=== PATIENT | female | born 2000 | race Two or more races ===

== ENCOUNTER 2021-10-05 18:43 | Emergency (ER) | payer MEDICAID, OTHER ==
[~2021-10-05] VITALS: Ht 160 cm; Wt 88.9 kg
[2021-10-05 20:15] LABS: Urine Bacteria FEW /hpf (None Seen); Urine Blood Negative /uL (Negative); Urine Mucus FEW (None Seen); Urine Specific Gravity 1.019 (1.001-1.035); Urine WBC 70 /hpf (0 - 5)
[2021-10-05 20:24] LABS: Basophils # (auto) 0.1 10 ^3/uL (0-0.2); Basophils % (auto) 0.3 % (0.0-2.0); Eosinophils # (auto) 0.2 10 ^3/uL (0-0.8); Hematocrit 35.7 % (36.0-46.0); Hemoglobin 12.1 g/dL (12.2-16.2); Lymphocytes # (auto) 1.3 10 ^3/uL (0.4-5.4); Mean Corpuscular Hemoglobin 28.7 pg (28.0-32.0); Mean Corpuscular Hgb Conc. 33.9 g/dL (32.0-36.0); Mean Corpuscular Volume 84.7 fL (80.0-100.0); Monocytes # (auto) 0.6 10 ^3/uL (0-1.3); Monocytes % (auto) 3.3 % (0.0-12.0); Neutrophils # (auto) 16.9 10 ^3/uL (1.6-8.6); Neutrophils % (auto) 88.4 % (37.0-80.0); Red Blood Cells 4.22 10^6/uL (4.0-5.20); Red Cell Distribution Width 14.4 % (11.8-14.3); White Blood Cell 19.2 10^3/uL (4.4-10.8)
[2021-10-05 21:05] LABS: Albumin 3.3 g/dL (3.4-5.0); BUN/Creatinine Ratio 11.7; Calcium 8.9 mg/dL (8.5-10.1); Potassium 3.6 mmol/L (3.5-5.1)
[2021-10-05 21:07] LABS: Bilirubin, Total 0.5 mg/dL (0.2-1.0); Total Protein 7.9 g/dL (6.4-8.2)
[2021-10-05] MEDS ORDERED: MORPHINE SULFATE 4 MG/ML SYR/VIAL IV ONE (21:45)
[2021-10-05] MEDS ORDERED: SODIUM CHLORIDE 0.9% 1,000 ML IV ONE (21:45)
[2021-10-05] MEDS ORDERED: IOHEXOL 300 MG/ML 100ML BOTTLE IJ ONE (22:17)
[2021-10-06] MEDS ORDERED: SODIUM CHLORIDE 0.9% 1,000 ML IV ONE (02:00)
[2021-10-06] MEDS ORDERED: MORPHINE SULFATE 4 MG/ML SYR/VIAL IV ONE ×2 (02:00)
[2021-10-06] MEDS ORDERED: IBUP800T26 PO (06:09)
[2021-10-06] MEDS ORDERED: CEPH500C PO (06:09)
[2021-10-06] MEDS ORDERED: ONDA-144 PO (06:09)
[2021-10-06] MEDS ORDERED: cefTRIAXone 1GM/50ML D5W 50 ML IV ONE (06:15)
[2021-10-06 07:37] VITALS: BP 129/83
== END 2021-10-06 08:11 | disposition home or self-care (01) ==
LOC: ER 18:43
DX: N12 Tubulo-interstitial nephritis, not specified as acute or chronic (principal)
CPT/HCPCS: 36415; 74177; 76830; 76856; 80053; 81001; 81025; 82150; 83690; 85025; 96361; 96365; 96375; 96376; 99285; J0696; J2270; Q9967

== ENCOUNTER 2021-12-07 10:34 | Emergency (ER) | payer MEDICAID ==
[~2021-12-07] VITALS: Ht 160 cm; Wt 88.5 kg
[~2021-12-07 10:34] MED LIST: CEPH500C PO; IBUP800T26 PO; ONDA-144 PO
[2021-12-07 11:28] LABS: Urine Bacteria FEW /hpf (None Seen); Urine Blood 3+ /uL (Negative); Urine Specific Gravity 1.026 (1.001-1.035); Urine WBC 83 /hpf (0 - 5)
[2021-12-07 11:43] LABS: Basophils # (auto) 0 10 ^3/uL (0-0.2); Basophils % (auto) 0.6 % (0.0-2.0); Eosinophils # (auto) 0.2 10 ^3/uL (0-0.8); Eosinophils % (auto) 2.9 % (0.0-7.0); Hematocrit 41.7 % (36.0-46.0); Hemoglobin 13.7 g/dL (12.2-16.2); Lymphocytes # (auto) 2.8 10 ^3/uL (0.4-5.4); Lymphocytes % (auto) 34.5 % (10.0-50.0); Mean Corpuscular Hemoglobin 27.8 pg (28.0-32.0); Mean Corpuscular Hgb Conc. 32.8 g/dL (32.0-36.0); Mean Corpuscular Volume 84.5 fL (80.0-100.0); Monocytes # (auto) 0.4 10 ^3/uL (0-1.3); Monocytes % (auto) 5.2 % (0.0-12.0); Neutrophils # (auto) 4.6 10 ^3/uL (1.6-8.6); Neutrophils % (auto) 56.8 % (37.0-80.0); Nucleated Red Blood Cells % 0.1 %; Red Blood Cells 4.93 10^6/uL (4.0-5.20); Red Cell Distribution Width 13.7 % (11.8-14.3); White Blood Cell 8.1 10^3/uL (4.4-10.8)
[2021-12-07] MEDS ORDERED: CIPROFLOXACIN HCL 500 MG TAB PO ONE (14:30)
[2021-12-07] MEDS ORDERED: CIPR-173 PO (16:05)
[2021-12-07 16:30] VITALS: BP 116/88
== END 2021-12-07 16:59 | disposition home or self-care (01) ==
LOC: ER 10:34
DX: N93.9 Abnormal uterine and vaginal bleeding, unspecified (principal); N39.0 Urinary tract infection, site not specified; Z79.1 Long term (current) use of non-steroidal anti-inflammatories (NSAID); Z79.899 Other long term (current) drug therapy
CPT/HCPCS: 36415; 81001; 84702; 85025

== ENCOUNTER 2023-01-16 18:31 | Emergency (ER) | payer MEDICAID, OTHER ==
[~2023-01-16] VITALS: Ht 162.6 cm; Wt 86.1 kg
[~2023-01-16 18:31] MED LIST changes: +CIPR-173 PO; +IBUP-1455 PO; -IBUP800T26 PO
[2023-01-16 19:37] VITALS: BP 146/80; PULSE 75; RESP 18; TEMP 98.4; O2SAT 98
[2023-01-16] MEDS ORDERED: CLIN300C70 PO (19:59)
[2023-01-16] MEDS ORDERED: HYDR-4902 PO (19:59)
[2023-01-16] MEDS ORDERED: CLINDAMYCIN HCL 150 MG CAP PO ONE (20:00)
[2023-01-16] MEDS ORDERED: HYDROcodone-ACET 5/325MG TAB PO ONE (20:00)
== END 2023-01-16 20:25 | disposition home or self-care (01) ==
LOC: ER 18:31
DX: L03.211 Cellulitis of face (principal); K04.7 Periapical abscess without sinus; Z79.899 Other long term (current) drug therapy; Z87.442 Personal history of urinary calculi

== ENCOUNTER 2023-01-19 18:18 | Emergency (ER) | payer OTHER ==
[~2023-01-19] VITALS: Ht 160 cm; Wt 88.4 kg
[~2023-01-19 18:18] MED LIST changes: +CLIN300C70 PO; +HYDR-4902 PO
[2023-01-19] MEDS ORDERED: IOHEXOL 300 MG/ML 100ML BOTTLE IJ ONE (20:12)
[2023-01-19] MEDS ORDERED: SODIUM CHLORIDE 0.9% 1,000 ML IV ONE (20:15)
[2023-01-19] MEDS ORDERED: AMPICILLIN & SULBACTAM SODIUM 3 GM in SODIUM CHL 0.9% 100 ML IV SCH (20:15)
[2023-01-19 20:30] LABS: Basophils # (auto) 0 10 ^3/uL (0-0.2); Basophils % (auto) 0.5 % (0.0-2.0); Eosinophils # (auto) 0.4 10 ^3/uL (0-0.8); Eosinophils % (auto) 4.4 % (0.0-7.0); Hematocrit 37.4 % (36.0-46.0); Hemoglobin 12.4 g/dL (12.2-16.2); Lymphocytes # (auto) 2.6 10 ^3/uL (0.4-5.4); Lymphocytes % (auto) 33.2 % (10.0-50.0); Mean Corpuscular Hemoglobin 28.5 pg (28.0-32.0); Mean Corpuscular Hgb Conc. 33.1 g/dL (32.0-36.0); Mean Corpuscular Volume 86.2 fL (80.0-100.0); Monocytes # (auto) 0.5 10 ^3/uL (0-1.3); Monocytes % (auto) 5.9 % (0.0-12.0); Neutrophils # (auto) 4.4 10 ^3/uL (1.6-8.6); Nucleated Red Blood Cells % 0.2 %; Red Blood Cells 4.34 10^6/uL (4.0-5.20); Red Cell Distribution Width 14.2 % (11.8-14.3); White Blood Cell 7.9 10^3/uL (4.4-10.8)
[2023-01-19 20:47] LABS: Albumin 3.5 g/dL (3.4-5.0); Calcium 8.1 mg/dL (8.5-10.1); Potassium 3.4 mmol/L (3.5-5.1)
[2023-01-19 20:51] LABS: BUN/Creatinine Ratio 11.9 (10.0-20.0); Bilirubin, Total 0.3 mg/dL (0.2-1.0); Total Protein 7.4 g/dL (6.4-8.2)
[2023-01-20] MEDS ORDERED: TETANUS-DIPTH-ACEL PERTUSSIS 0.5ML SYR Tdap IM ONE
[2023-01-20 00:08] VITALS: BP 133/85; PULSE 59; RESP 16; TEMP 98.1; O2SAT 98
== END 2023-01-20 01:02 | disposition home or self-care (01) ==
LOC: ER 18:18
DX: K04.7 Periapical abscess without sinus (principal); L03.211 Cellulitis of face; J03.90 Acute tonsillitis, unspecified; R59.1 Generalized enlarged lymph nodes; J35.2 Hypertrophy of adenoids; K02.9 Dental caries, unspecified; Z87.442 Personal history of urinary calculi
CPT/HCPCS: 36415; 70487; 80053; 85025; 90471; 90715; 96361; 96365; 96366; 99285; J7030; Q9967

== ENCOUNTER 2023-02-09 12:38 | Emergency (ER) | payer OTHER ==
[~2023-02-09] VITALS: Ht 162.6 cm; Wt 89.7 kg
[2023-02-09] MEDS ORDERED: CLOT1CRE78 EX (16:44)
[2023-02-09] MEDS ORDERED: HYDR-3682 PO (16:44)
[2023-02-09] MEDS ORDERED: DOXY-286 PO (16:44)
[2023-02-09] MEDS ORDERED: TRIA0.1O TOP (16:44)
[2023-02-09] MEDS ORDERED: DexAMETHasone SOD PHOS 10MG/1ML VIAL INJ IM ONE (16:45)
[2023-02-09] MEDS ORDERED: DexAMETHasone SOD PHOS 4 MG/1ML SDV INJ ONE (16:57)
[2023-02-09 17:36] VITALS: BP 132/85; PULSE 70; RESP 18; TEMP 97.5; O2SAT 96
== END 2023-02-09 17:39 | disposition home or self-care (01) ==
LOC: ER 12:38
DX: L50.9 Urticaria, unspecified (principal)
CPT/HCPCS: 96372; J1100

== ENCOUNTER 2023-06-02 10:50 | Emergency (ER) | payer OTHER ==
[~2023-06-02] VITALS: Ht 162.6 cm; Wt 89.0 kg
[~2023-06-02 10:50] MED LIST changes: +CLOT1CRE78 EX; +DOXY-286 PO; +HYDR-3682 PO; +TRIA0.1O TOP
[2023-06-02 14:48] VITALS: BP 108/70; PULSE 77; RESP 18; O2SAT 98
[2023-06-02] MEDS ORDERED: BENZ100C97 PO (15:51)
== END 2023-06-02 15:58 | disposition home or self-care (01) ==
LOC: ER 10:50
DX: J20.9 Acute bronchitis, unspecified (principal); Z87.442 Personal history of urinary calculi; Z32.02 Encounter for pregnancy test, result negative
CPT/HCPCS: 71045; 81025

== ENCOUNTER 2023-12-21 16:03 | Emergency (ER) | payer OTHER ==
[~2023-12-21] VITALS: Ht 160 cm; Wt 88.2 kg
[~2023-12-21 16:03] MED LIST changes: +BENZ100C97 PO; +CLIN1CAP70 PO; -CLIN300C70 PO
[2023-12-21] MEDS ORDERED: AMOX875T4 PO (20:00)
[2023-12-21] MEDS ORDERED: MUPI2OIN2 EX (20:00)
[2023-12-21] MEDS ORDERED: ACET500T58 PO (20:00)
[2023-12-21 20:05] VITALS: BP 106/89; PULSE 64; RESP 12; TEMP 97.9; O2SAT 97
== END 2023-12-21 20:27 | disposition home or self-care (01) ==
LOC: ER 16:03
DX: L01.00 Impetigo, unspecified (principal); Z87.442 Personal history of urinary calculi; Z79.899 Other long term (current) drug therapy